=== PATIENT | male | born 1955 | race African-American/Black ===

== ENCOUNTER 2016-10-18 21:54 | Emergency (ER) | payer OTHER ==
[~2016-10-18] VITALS: Ht 177.8 cm; Wt 96.2 kg
[2016-10-18 21:59] VITALS: TEMP 36.6; Ht 177.8 cm; Wt 96.2 kg
[2016-10-18] MEDS ORDERED: ASPI81TA28 PO (22:30)
[2016-10-18] MEDS ORDERED: MULT-506 PO (22:30)
--- NOTE | 2016-10-18 22:43 | DIAGNOSTIC IMAGING REPORT ---
CHEST ONE VIEW PORTABLE CLINICAL HISTORY: syncope dyspnea COMPARISON STUDY: No previous studies for comparison. FINDINGS: Minimal parenchymal infiltrate left base. Lungs otherwise are clear. No evidence for cardiac enlargement. IMPRESSION: Minimal parenchymal infiltrate versus atelectasis left base. Otherwise negative study. The above report was generated using voice recognition software. It may contain grammatical, syntax or spelling errors. Electronically signed by: Chidi Dawson M.D. 10/18/2016 10:41 PM Dictated Date/Time: 10/18/2016 10:41 PM
[2016-10-18 22:44] LABS: BASO % 0.4 %; BASO ABS # 0.05 K/uL (0-0.2); COMPLETE YES; EOS % 2.9 %; HEMATOCRIT 43.3 % (42-52); IG% 0.2 %; LYMPH % 30.2 %; LYMPH ABS # 3.42 K/uL (1.2-3.4); MEAN CELL VOLUME 93.9 fL (80-100); MEAN CORPUSCULAR HEMOGLOBIN 32.8 pg (25-34); MEAN CORPUSCULAR HGB CONC 34.9 g/dl (32-36); MEAN PLATELET VOLUME 10.7 fL (7.4-10.4); MONO % 8.6 %; NEUT % 57.7 %; PLATELET COUNT 287 K/uL (130-400); RED BLOOD COUNT 4.61 M/uL (4.7-6.1); WHITE BLOOD COUNT 11.33 K/uL (4.8-10.8)
--- NOTE | 2016-10-18 22:59 | EMERGENCY ROOM VISIT NOTE ---
History Report prepared by Jennaibe: Brenda Gloria Under the Supervision of: Dr. Migdalia Duffy D.O. First contact with patient: 22:43 Chief Complaint: SYNCOPE Stated Complaint: PASSED OUT THIS AFTERNOON, FELL ON FACE, LAC History of Present Illness The patient is a 61 year old male who presents to the Emergency Room with complaints of a syncopal episode that occurred prior to arrival. He reports he was driving home from [place] around 1300 this afternoon when he became nauseated. He pulled over and experienced a syncopal episode, hitting his head and sustaining a laceration to the mid forehead. After he came too, he was outside his vehicle, which was on the side of the road on the highway. He called a friend and drove the rest of the way home. He admits he had only drank coffee this morning and had eaten nothing before he left. He denies any chest pain or shortness of breath. He denies any blurry vision or double vision. He complains "my head is ringing" but states this has been going on "for a while". He denies any back pain or abdominal pain. He admits to some numbness in his bilateral legs, but denies any swelling in his legs. The patient denies any chronic medical issues and states he takes no daily medications. He also denies any recent changes to his diet or lifestyle. Source of History: patient Onset: 1300 today Position: other (global) Quality: other (syncopal episode) Timing: resolved Associated Symptoms: + numbness (bilateral legs), No chest pain, No SOB, No abdominal pain, No back pain Review of Systems See HPI for pertinent positives & negatives. A total of 10 systems reviewed and were otherwise negative. Past Medical & Surgical Medical Problems: (1) History of prostate cancer (2) Seasonal allergies Family History Cancer Diabetes mellitus Heart disease Hypertension Social History Smoking Status: Current Every Day Smoker Alcohol Use: occasionally Drug Use: none Marital Status: in relationship Housing Status: lives with significant other Occupation Status: employed Current/Historical Medications Scheduled Aspirin (Aspirin Ec), 81 MG PO DAILY Multivitamin (Multivitamin), 1 TAB PO DAILY Allergies Coded Allergies: POLLEN (Verified Allergy, Intermediate, ITCHY EYES, SNEEZING, CONGESTION, 10/18/16) Physical Exam Vital Signs Date Time Temp Pulse Resp B/P (MAP) Pulse Ox O2 Delivery O2 Flow Rate FiO2 10/19/16 00:45 66 16 119/98 94 10/18/16 23:54 62 16 103/70 66 124/71 66 122/71 10/18/16 23:15 65 16 129/82 95 Room Air 10/18/16 22:32 63 10/18/16 21:59 36.6 76 16 123/73 96 Room Air Physical Exam GENERAL: Patient is alert, well appearing, well nourished, no distress, non- toxic EYE EXAM: normal conjunctiva, PERRL and EOM's grossly intact HEAD: 1.5 cm laceration to central inferior forehead, just superior to the left eyebrow. Small superficial abrasion to forehead on right, abrasion to the nose. OROPHARYNX: no exudate, no erythema, lips, buccal mucosa, and tongue normal and mucous membranes are moist NECK: supple, no nuchal rigidity, no adenopathy, non-tender LUNGS: Clear to auscultation. Normal chest wall mechanics HEART: no murmurs, S1 normal and S2 normal ABDOMEN: abdomen soft, non-tender, normo-active bowel sounds, no masses, no rebound or guarding. BACK: Back is symmetrical on inspection and there is no deformity, no midline tenderness, no CVA tenderness. SKIN: no rashes and no bruising UPPER EXTREMITIES: upper extremities are grossly normal. LOWER EXTREMITIES: No pitting edema. NEURO EXAM: Normal sensorium, cranial nerves II-XII grossly intact, normal speech, no gross weakness of arms, no gross weakness of legs. No drift. Finger to nose intact. Gross sensation intact. Normal heel to santos. Medical Decision & Procedures ER Provider Diagnostic Interpretation: Radiology results have been interpreted by the radiologist and reviewed by me. CHEST ONE VIEW PORTABLE CLINICAL HISTORY: syncope dyspnea COMPARISON STUDY: No previous studies for comparison. FINDINGS: Minimal parenchymal infiltrate left base. Lungs otherwise are clear. No evidence for cardiac enlargement. IMPRESSION: Minimal parenchymal infiltrate versus atelectasis left base. Otherwise negative study. The above report was generated using voice recognition software. It may contain grammatical, syntax or spelling errors. Electronically signed by: Chidi Dawson M.D. 10/18/2016 10:[address] C SPINE: No acute fracture or dislocation. Straightening of the cervical spine may be due to muscle spasm or positioning. Advanced multi-level degenerative spondylosis. Radiologist: Carlos Eduardo Triana M.D. CT HEAD: No intracranial hemorrhage or mass effect. Mucosal thickening of the right maxillary sinus and right ethmoid air cells. Radiologist: Carlos Eduardo Triana M.D. Laboratory Results 10/18/16 22:20 Red Blood Count 4.61, Mean Corpuscular Volume 93.9, Mean Corpuscular Hemoglobin 32.8, Mean Corpuscular Hemoglobin Concent 34.9, Mean Platelet Volume 10.7, Neutrophils (%) (Auto) 57.7, Lymphocytes (%) (Auto) 30.2, Monocytes (%) (Auto) 8.6, Eosinophils (%) (Auto) 2.9, Basophils (%) (Auto) 0.4, Neutrophils # (Auto) 6.54, Lymphocytes # (Auto) 3.42, Monocytes # (Auto) 0.97, Eosinophils # (Auto) 0.33, Basophils # (Auto) 0.05 10/18/16 22:20 Test 10/18/16 22:20 10/18/16 22:50 10/18/16 23:55 White Blood Count 11.33 K/uL (4.8-10.8) Red Blood Count 4.61 M/uL (4.7-6.1) Hemoglobin 15.1 g/dL (14.0-18.0) Hematocrit 43.3 % (42-52) Mean Corpuscular Volume 93.9 fL (80-100) Mean Corpuscular Hemoglobin 32.8 pg (25-34) Mean Corpuscular Hemoglobin Concent 34.9 g/dl (32-36) Platelet Count 287 K/uL (130-400) Mean Platelet Volume 10.7 fL (7.4-10.4) Neutrophils (%) (Auto) 57.7 % Lymphocytes (%) (Auto) 30.2 % Monocytes (%) (Auto) 8.6 % Eosinophils (%) (Auto) 2.9 % Basophils (%) (Auto) 0.4 % Neutrophils # (Auto) 6.54 K/uL (1.4-6.5) Lymphocytes # (Auto) 3.42 K/uL (1.2-3.4) Monocytes # (Auto) 0.97 K/uL (0.11-0.59) Eosinophils # (Auto) 0.33 K/uL (0-0.5) Basophils # (Auto) 0.05 K/uL (0-0.2) RDW Standard Deviation 47.0 fL (36.4-46.3) RDW Coefficient of Variation 13.8 % (11.5-14.5) Immature Granulocyte % (Auto) 0.2 % Immature Granulocyte # (Auto) 0.02 K/uL (0.00-0.02) D-Dimer < 190 ug/L FEU (0-500) Anion Gap 5.0 mmol/L (3-11) Est Creatinine Clear Calc Drug Dose 58.7 ml/min Estimated GFR () 56.6 Estimated GFR (Non- 48.8 BUN/Creatinine Ratio 9.5 (10-20) Calcium Level 8.7 mg/dl (8.5-10.1) Total Bilirubin 0.3 mg/dl (0.2-1) Aspartate Amino Transf (AST/SGOT) 25 U/L (15-37) Alanine Aminotransferase (ALT/SGPT) 38 U/L (12-78) Alkaline Phosphatase 81 U/L (45-117) Total Creatine Kinase 220 U/L (39-308) Creatine Kinase MB 1.5 ng/ml (0.5-3.6) Creatine Kinase MB Ratio 0.7 (0-3.0) Total Protein 7.0 gm/dl (6.4-8.2) Albumin 3.8 gm/dl (3.4-5.0) Globulin 3.2 gm/dl (2.5-4.0) Albumin/Globulin Ratio 1.2 (0.9-2) Thyroid Stimulating Hormone (TSH) 1.060 uIu/ml (0.300-4.500) Bedside Troponin I < 0.030 ng/ml (0-0.045) Urine Color YELLOW Urine Appearance CLEAR (CLEAR) Urine pH 5.5 (4.5-7.5) Urine Specific [place] 1.021 (1.000-1.030) Urine Protein NEG (NEG) Urine Glucose (UA) NEG (NEG) Urine Ketones TRACE (NEG) Urine Occult Blood NEG (NEG) Urine Nitrite NEG (NEG) Urine Bilirubin NEG (NEG) Urine Urobilinogen NEG (NEG) Urine Leukocyte Esterase NEG (NEG) Urine WBC (Auto) 1-5 /hpf (0-5) Urine RBC (Auto) 0-4 /hpf (0-4) Urine Hyaline Casts (Auto) 1-5 /lpf (0-5) Urine Epithelial Cells (Auto) 5-10 /lpf (0-5) Urine Bacteria (Auto) NEG (NEG) Laboratory results per my review. Procedure Location: Superior to left eyebrow Total length: 1.5 cm Complexity: Simple Verbal consent was obtained after the risks and benefits were explained, including but not limited to bleeding, scarring, infection, pain, and bone/joint /nerve damage. At this time, the risks of the procedure are less than the risks of NOT performing the procedure. A time out was taken and the correct patient and site identified. The wound was explored for foreign bodies and none found. Examination revealed no injury to deep structures such as tendons, bone, or significant blood vessels. Debridement was not performed. The wound edges were approximated using derma-sanchez and steri-strips. Hemostasis and excellent approximation was achieved. Antibacterial ointment and a sterile dressing applied. Detailed wound care instructions and signs and symptoms of infection reviewed with the patient. No complications and the patient tolerated the procedure well. ECG Indication: syncope Rate (beats per minute): 64 Rhythm: normal sinus Findings: no acute ischemic change, no ectopy, other (normal intervals, normal axis) ED Course 2250: The patient was evaluated in room B8. A complete history and physical exam was performed. 0005: I sutured the patient's forehead with steri-strips and derma-sanchez. See procedure note for further details. 0025: I reevaluated the patient. He is feeling much better. I discussed his results and discharge instructions and he verbalized complete understanding and agreement. Medical Decision Prior records/ancillary studies reviewed. Triage Nursing notes reviewed. The patient's history was concerning for syncope. Differential diagnosis: Etiologies such as vasovagal event, infection, hypoglycemia, electrolyte abnormalities, cardiac sources, intracerebral event, toxicologic, neurologic, as well as others were entertained. Pt well appearing here, no residual symptoms or complaints. Patient with negative orthostatics, labs reassuring. Given limited by mouth intake during the day today and only single cup of coffee this morning as well as prodromal symptoms, most likely symptoms related to volume depletion or mild hypoglycemia. Have a low suspicion for occult ACS, dysrhythmia, dissection, PE , patient with normal nonfocal neuro exam and doubt CVA. Patient tolerated by mouth here, and related with a steady gait. Low suspicion for any additional culture medic injury given low risk fall. Patient not anticoagulated or on any platelets. Patient was admitted here several hours already following event, troponin here was negative greater than 6 hours beyond original symptoms. Patient with reassuring EKG. Discussed with patient adequate hydration and by mouth intake, follow up regarding injury to his forehead, follow-up with family doctor as a precaution given events, symptoms to watch and return for, he verbalized understanding and was agreeable with plan. Medication Reconcilliation Current Medication List: was personally reviewed by me Blood Pressure Screening Patient's blood pressure: Normal blood pressure Blood pressure disposition: Did not require urgent referral Impression Primary Impression: Syncope Additional Impressions: Laceration Abrasion Contusion Scribe Attestation The scribe's documentation has been prepared under my direction and personally reviewed by me in its entirety. I confirm that the note above accurately reflects all work, treatment, procedures, and medical decision making performed by me. Departure Information Dispostion Home / Self-Care Referrals No Doctor, Assigned (PCP) Patient Instructions My [facility] [address] [email or web address] Additional Instructions Please drink water at frequent intervals to stay well-hydrated. Please eat at regular intervals. Please follow up with your family doctor as precaution given the events tonight. If you develop any recurrent episodes of dizziness or lightheadedness, feel as though you're going to blackout, develop chest pain , palpitations, trouble breathing, fevers, vomiting, numbness or tingling, or you have any other new or concerning symptoms, please return the emergency room. Your kidney function was mildly abnormal with a creatinine of 1.5. Please have your family doctor recheck this. There was no evidence of infection in your urine. Problem Qualifiers Primary Impression: Syncope Syncope type: unspecified Qualified Codes: R55 - Syncope and collapse Additional Impressions: Contusion Encounter type: initial encounter Contusion area: head Contusion of head detail: other part of head Qualified Codes: S00.83XA - Contusion of other part of head, initial encounter
[2016-10-18 23:02] LABS: BUN/CREATININE RATIO 9.5 (10-20); CALCIUM 8.7 mg/dl (8.5-10.1); CREATININE 1.5 mg/dl (0.60-1.40); POTASSIUM 3.8 mmol/L (3.5-5.1)
[2016-10-18 23:12] LABS: ALB/GLOB RATIO 1.2 (0.9-2); CKMB/CK RATIO 0.7 (0-3.0); THYROID STIMULATING HORMONE 1.06 uIu/ml (0.300-4.500)
[2016-10-19 00:19] LABS: URINE APPEARANCE CLEAR (CLEAR); URINE BILIRUBIN NEG (NEG); URINE COLOR YELLOW; URINE NITRITE NEG (NEG); URINE PH 5.5 (4.5-7.5); URINE SPECIFIC GRAVITY 1.021 (1.000-1.030); UROBILINOGEN NEG (NEG); ZZUR CULT IF INDIC CLEAN CATCH NO
[2016-10-19 00:20] LABS: MANUAL MICROSCOPIC REQUIRED? NO; REVIEW REQ? NO
[2016-10-19 00:45] VITALS: BP 119/98; PULSE 66; O2SAT 94
--- NOTE | 2016-10-19 07:04 | DIAGNOSTIC IMAGING REPORT ---
CERVICAL SPINE W/O CLINICAL HISTORY: 61 years-old Male presenting with syncope, closed head injury, fall. TECHNIQUE: Multidetector CT of the cervical spine was performed without the use of intravenous contrast. IV contrast: None. A dose lowering technique was used consistent with the principles of ALARA (as low as reasonably achievable). COMPARISON: None. CT DOSE (mGy.cm): The estimated cumulative dose is 1120.42 mGy.cm. FINDINGS: Lokie Engineer topogram: Unremarkable. Slight reversal of normal cervical lordosis centered at C4-5. Vertebral body heights and alignment otherwise maintained. Intervertebral disc height loss at C4-5 through C7-T1, where there are multilevel degenerative changes comprised of disc osteophyte complexes. In combination with uncovertebral hypertrophy, varying degrees of neural foraminal narrowing at these levels., Left greater than right. No osseous spinal canal narrowing. No acute fracture or subluxation. No prevertebral soft tissue swelling. Paraspinal soft tissues normal. Lung apices clear. Airway patent. Mucosal thickening in the bilateral maxillary sinuses. IMPRESSION: 1. No acute osseous injury of the cervical spine. 2. Multilevel degenerative changes with very degrees of neural foraminal narrowing from C4-5 through C7-T1, left greater than right. Electronically signed by: Oswaldo Wilson M.D. 10/19/2016 7:03 AM Dictated Date/Time: 10/19/2016 6:58 AM
--- NOTE | 2016-10-19 07:09 | DIAGNOSTIC IMAGING REPORT ---
HEAD CT NONCONTRAST CT DOSE: HISTORY: syncope, chi TECHNIQUE: Multiaxial CT images of the head were performed without the use of intravenous contrast. Automated exposure control was utilized for this study. A dose lowering technique was utilized adhering to the principles of ALARA. Comparison: None. Findings: Mucosal thickening within the right maxillary sinus and ethmoid air cells. The mastoid air cells are clear. The calvarium and skull base are intact. The ventricles and sulci are within normal limits. There is no mass, hematoma, midline shift, or acute infarct. Impression: No acute intracranial abnormality. Electronically signed by: Fred Sears M.D. 10/19/2016 7:08 AM Dictated Date/Time: 10/19/2016 7:06 AM
== END 2016-10-19 00:35 | disposition home or self-care (01) ==
LOC: C.EDB 21:56
DX: R55 Syncope and collapse (principal); S01.81XA Laceration without foreign body of other part of head, initial encounter; S00.81XA Abrasion of other part of head, initial encounter; S00.31XA Abrasion of nose, initial encounter; S00.83XA Contusion of other part of head, initial encounter; X58.XXXA Exposure to other specified factors, initial encounter; F17.200 Nicotine dependence, unspecified, uncomplicated; J30.2 Other seasonal allergic rhinitis; Z79.82 Long term (current) use of aspirin; Z85.46 Personal history of malignant neoplasm of prostate; Z83.3 Family history of diabetes mellitus; Z82.49 Family history of ischemic heart disease and other diseases of the circulatory system